=== PATIENT | male | born 1965 | race Caucasian/White ===

== ENCOUNTER 2024-10-07 18:05 | Inpatient (IN) | payer MEDICARE, MEDICAID ==
[~2024-10-07] VITALS: Ht 185.4 cm; Wt 81.6 kg
[~2024-10-07 18:05] MED LIST: ALBU18HF2 IH; BENZ1TAB22 PO; FOLI1TAB16 PO; LATA2.5D2 EACHEYE; LORA2TAB95 PO; OLAN20TA3 PO; TEMA15CA5 PO; THIO10CA PO; TIMO10DR31 OP
[2024-10-07 19:30] LABS: BASOPHILS % (AUTO) 0.5 % (0.0-2.0); HEMOGLOBIN 14.8 g/dL (13.5-17.5); NEUTROPHILS # (AUTO) 5.7 K/uL (1.8-8.9)
[2024-10-07] MEDS ORDERED: OLANZAPINE 10 MG VIAL IM ONE (19:30)
[2024-10-07] MEDS: OLANZAPINE 10 MG VIAL IM ONE (19:37)
[2024-10-07 19:39] LABS: BASOPHILS # (AUTO) 0.1 K/uL (0.0-0.2); EOSINOPHILS # (AUTO) 0.1 K/uL (0.0-0.7); EOSINOPHILS % (AUTO) 1.6 % (0.0-6.0); HEMATOCRIT 43 % (39-51); LYMPHOCYTES # (AUTO) 2.6 K/uL (0.8-4.8); LYMPHOCYTES % (AUTO) 26.7 % (20.0-44.0); MEAN CORPUSCULAR HEMOGLOBIN 33 PG (26.0-33.0); MEAN CORPUSCULAR HGB CONC 35 g/dl (31.0-36.0); MEAN CORPUSCULAR VOLUME 94 fL (80-96); MONOCYTES # (AUTO) 1.1 K/uL (0.1-1.30); NEUTROPHILS % (AUTO) 59.2 % (43.0-81.0); PLATELET COUNT (AUTO) 190 K/uL (150-450); RED BLOOD CELL COUNT(AUTO) 4.54 MIL/uL (4.5-6.0); RED CELL DISTRIBUTION WIDTH 14.4 % (11.5-15.0); WHITE BLOOD COUNT (AUTO) 9.6 K/uL (4.3-11.0)
[2024-10-07] MEDS ORDERED: LORA-259 PO (19:46)
[2024-10-07] MEDS ORDERED: ACET325T53 PO (19:46)
[2024-10-07] MEDS ORDERED: MULT-594 PO (19:46)
[2024-10-07] MEDS ORDERED: DOCU100C36 PO (19:46)
[2024-10-07] MEDS ORDERED: DONE5TAB34 PO (19:46)
[2024-10-07] MEDS ORDERED: DIVA500T2 PO (19:46)
[2024-10-07] MEDS ORDERED: BISA10SU11 RC (19:46)
[2024-10-07] MEDS ORDERED: NA P133E RC (19:46)
[2024-10-07] MEDS ORDERED: RISP2TAB5 PO (19:46)
[2024-10-07] MEDS ORDERED: MAGN400O6 PO (19:46)
[2024-10-07] MEDS ORDERED: QUET200T PO (19:46)
[2024-10-07 20:07] LABS: ALANINE AMINOTRANSFERASE 20 U/L (12-78); ALBUMIN 3.7 g/dL (3.4-5.0); ALCOHOL, BLOOD < 3 mg/dL (0-10); ALKALINE PHOSPHATASE 66 U/L (46-116); ASPARTATE AMINOTRANSFERASE 20 U/L (15-37); BILIRUBIN,DIRECT 0.1 mg/dL (0.0-0.2); BILIRUBIN,TOTAL 0.4 mg/dL (0.2-1.0); CALCIUM, SERUM 8.7 mg/dL (8.5-10.1); CARBON DIOXIDE 29 mmol/L (21-32); CHLORIDE 105 mmol/L (98-107); CREATININE 0.7 mg/dL (0.6-1.3); GLUCOSE 104 mg/dL (74-106); POTASSIUM 4.2 mmol/L (3.5-5.1); SODIUM SERUM 142 mmol/L (136-145); TOTAL PROTEIN, SERUM 7.3 g/dL (6.4-8.2); UREA NITROGEN, BLOOD 12 mg/dL (7-18)
[2024-10-07 20:13] LABS: ACETAMINOPHEN 0 ug/ml (10-30)
[2024-10-07] MEDS ORDERED: LORAZEPAM INJ 2 MG/ML VIAL ONE (20:59)
[2024-10-07] MEDS: LORAZEPAM INJ 2 MG/ML VIAL IM ONE (21:01)
[2024-10-07 22:08] LABS: APPEARANCE,URINE CLEAR (CLEAR); BILIRUBIN,URINE NEGATIVE (NEGATIVE); BLOOD, URINE NEGATIVE Ery/uL (NEGATIVE); COLOR,URINE YELLOW (YELLOW); KETONES,URINE NEGATIVE (NEGATIVE); LEUKOCYTE ESTERASE ,URINE NEGATIVE (NEGATIVE); NITRITE, URINE NEGATIVE (NEGATIVE); PROTEIN,URINE NEGATIVE (NEGATIVE); UGLUCOSE NEGATIVE (NEGATIVE); UROBILINOGEN,URINE 0.2 EU/dL (0.2)
[2024-10-07 22:29] LABS: AMPHETAMINE, URINE NEGATIVE (NEGATIVE); BARBITURATE, URINE NEGATIVE (NEGATIVE); BENZODIAZEPINE, URINE NEGATIVE (NEGATIVE); CANNABINOID, URINE NEGATIVE (NEGATIVE); COCCAINE, URINE NEGATIVE (NEGATIVE); OPIATE, URINE NEGATIVE (NEGATIVE); PHENCYCLIDINE SCREEN,URINE NEGATIVE (NEGATIVE)
[2024-10-08 00:45] VITALS: BP 114/72; TEMP 98.1; O2SAT 98
[2024-10-08] MEDS ORDERED: ACETAMINOPHEN 325 MG TABLET PO PRN ×2 (01:00→10:00)
[2024-10-08] MEDS ORDERED: MAG HYDROX/AL HYDROX/SIMETH 30 ML UDC PO PRN (01:00)
[2024-10-08] MEDS: TEMAZEPAM 7.5 MG CAPSULE PO PRN (01:06)
[2024-10-08] MEDS: BLOOD SUGAR DIAGNOSTIC 1 EACH STRIP IN ONE (01:11)
[2024-10-08 01:31] VITALS: BP 114/72; TEMP 98.1; O2SAT 98
[2024-10-08 08:00] VITALS: BP 116/81; TEMP 97.8; O2SAT 98
[2024-10-08 08:29] LABS: BILIRUBIN,TOTAL 0.4 mg/dL (0.2-1.0); CALCIUM, SERUM 8.2 mg/dL (8.5-10.1); CREATININE 0.5 mg/dL (0.6-1.3); POTASSIUM 4.4 mmol/L (3.5-5.1); TOTAL PROTEIN, SERUM 6.1 g/dL (6.4-8.2)
[2024-10-08] MEDS: LORAZEPAM 1 MG TABLET PO PRN (08:37)
[2024-10-08] MEDS ORDERED: MAGNESIUM HYDROXIDE 30 ML UDC PO PRN (10:00)
[2024-10-08] MEDS: diphenhydrAMINE HCL 50 MG/ML VIAL IM STA (11:02)
[2024-10-08] MEDS: OLANZAPINE 10 MG VIAL IM STA (11:03)
[2024-10-08 16:00] VITALS: BP 110/58; TEMP 98.7; O2SAT 98
[2024-10-08] MEDS: DONEPEZIL 5 MG TABLET PO SCH (16:51)
[2024-10-08] MEDS ORDERED: TEMAZEPAM 7.5 MG CAPSULE PO PRN (19:30)
[2024-10-08] MEDS: QUETIAPINE FUMARATE 100 MG TABLET PO SCH (21:25)
[2024-10-08] MEDS: DIVALPROEX SODIUM 500 MG TABLET.DR PO SCH (21:35)
[2024-10-09 07:30] LABS: CHOLESTEROL 172 mg/dL (<200); HDL CHOLESTEROL 60 mg/dL (40-60); LDL 108 mg/dL (0-99); TRIGLYCERIDES 61 mg/dL (30-150)
[2024-10-09] MEDS: risperiDONE 1 MG TABLET PO SCH (08:07)
[2024-10-09] MEDS: MULTIVITAMINS,THERAGRAN 1 UDTAB TABLET PO SCH (08:07)
[2024-10-09] MEDS: DOCUSATE SODIUM 100 MG CAPSULE PO SCH (08:07)
[2024-10-09 08:15] VITALS: BP 124/86; TEMP 98.1; O2SAT 97
[2024-10-09 16:09] VITALS: BP 139/85; TEMP 98.2; O2SAT 98
[2024-10-10 08:00] VITALS: BP 111/83; TEMP 98; O2SAT 99
[2024-10-10 16:00] VITALS: BP 125/77; TEMP 97.7; O2SAT 99
[2024-10-11 08:00] VITALS: BP 131/91; TEMP 98.5; O2SAT 97
[2024-10-12 08:00] VITALS: BP 121/88; TEMP 97.7; O2SAT 100
[2024-10-12 16:00] VITALS: BP 126/71; TEMP 98; O2SAT 100
[2024-10-12 20:45] VITALS: BP 122/70; TEMP 98.2; O2SAT 100
[2024-10-13 08:04] VITALS: BP 114/82; TEMP 97.9; O2SAT 99
[2024-10-13] MEDS: clonazePAM 0.5 MG TABLET PO PRN (13:44)
[2024-10-13] MEDS: OLANZAPINE 10 MG VIAL IM ONE (15:47)
[2024-10-13 16:15] VITALS: BP 129/83; TEMP 98; O2SAT 100
[2024-10-13] MEDS: DIVALPROEX SODIUM 500 MG TABLET.DR PO SCH ×2 (17:37→21:12)
[2024-10-14 08:00] VITALS: BP 128/90; TEMP 98.6; O2SAT 99
[2024-10-15 08:00] VITALS: BP 136/85; TEMP 98; O2SAT 95
[2024-10-15 16:09] VITALS: BP 129/83; TEMP 97.9; O2SAT 95
[2024-10-15 20:40] VITALS: BP 115/98; TEMP 98.5; O2SAT 99
[2024-10-16 08:00] VITALS: BP 108/77; TEMP 98.3; O2SAT 96
[2024-10-16] MEDS: OLANZAPINE 10 MG VIAL IM ONE (11:43)
[2024-10-16] MEDS: diphenhydrAMINE HCL 50 MG/ML VIAL IM ONE (11:43)
[2024-10-16 20:00] VITALS: BP 106/80; TEMP 97.8; O2SAT 97
[2024-10-16 21:18] VITALS: BP 106/80; TEMP 97.8; O2SAT 97
[2024-10-17 08:00] VITALS: BP 133/98; TEMP 97.9; O2SAT 96
[2024-10-17] MEDS: MAGNESIUM HYDROXIDE 30 ML UDC PO PRN (08:23)
[2024-10-17] MEDS: HALOPERIDOL LACTATE INJ 5 MG/ML VIAL IM ONE (08:39)
[2024-10-17] MEDS: diphenhydrAMINE HCL 50 MG/ML VIAL IM ONE (08:39)
[2024-10-17] MEDS: risperiDONE 1 MG TABLET PO SCH (08:45)
[2024-10-17 16:00] VITALS: BP 137/90; TEMP 98.7; O2SAT 96
[2024-10-17 20:45] VITALS: BP 131/76; TEMP 98.4; O2SAT 97
[2024-10-18 08:00] VITALS: BP 125/89; TEMP 97.7; O2SAT 98
[2024-10-18 16:00] VITALS: BP 127/81; TEMP 98.6; O2SAT 95
[2024-10-18 20:58] VITALS: BP 125/80; TEMP 98.1; O2SAT 98
[2024-10-19 08:00] VITALS: BP 119/77; TEMP 98.6; O2SAT 95
[2024-10-19 16:00] VITALS: BP 123/84; TEMP 98.6; O2SAT 100
[2024-10-20] MEDS: QUETIAPINE FUMARATE 100 MG TABLET PO ONE (13:04)
[2024-10-20 16:20] VITALS: BP 130/69; TEMP 98.1; O2SAT 100
[2024-10-20 21:21] VITALS: BP 128/72; TEMP 98.1; O2SAT 98
[2024-10-21 08:00] VITALS: BP 133/94; TEMP 98.7; O2SAT 99
[2024-10-21 16:00] VITALS: BP 119/78; TEMP 98.6; O2SAT 98
== END 2024-10-21 16:15 | DRG 885 ==
LOC: ER 18:16 → GPS 10-08 00:04
PROVIDERS: ADMIT Nurse Practitioner Psychiatric/Mental Health; ATTEND Nurse Practitioner Acute Care
DX: F25.0 Schizoaffective disorder, bipolar type (principal); F03.94 Unspecified dementia, unspecified severity, with anxiety; F03.92 Unspecified dementia, unspecified severity, with psychotic disturbance; E44.1 Mild protein-calorie malnutrition; F29 Unspecified psychosis not due to a substance or known physiological condition; J44.9 Chronic obstructive pulmonary disease, unspecified; Z91.89 Other specified personal risk factors, not elsewhere classified; F32.A Depression, unspecified; Z79.899 Other long term (current) drug therapy; F41.9 Anxiety disorder, unspecified; E88.09 Other disorders of plasma-protein metabolism, not elsewhere classified; Z73.6 Limitation of activities due to disability
CPT/HCPCS: 36415; 80048-TC; 80053-TC; 80061-TC; 80076-TC; 80164-TC; 82962-TC; 85025-TC; G0480; J1200; J1630; J2060; J3490